=== PATIENT | female | born 1985 | race African-American/Black ===

== ENCOUNTER 2021-05-23 16:16 | Emergency (ER) | payer OTHER ==
[~2021-05-23] VITALS: Ht 172.7 cm; Wt 76.0 kg
[2021-05-23 16:30] VITALS: BP 120/72
== END 2021-05-23 18:00 | disposition home or self-care (01) ==
LOC: ER 16:16
DX: J02.8 Acute pharyngitis due to other specified organisms (principal)
CPT/HCPCS: 87070; 87880; 99283-25

== ENCOUNTER 2021-05-30 17:03 | Emergency (ER) | payer OTHER ==
[~2021-05-30] VITALS: Ht 172.7 cm; Wt 77.2 kg
[2021-05-30 17:18] VITALS: BP 135/88
--- NOTE | 2021-05-30 18:03 | PHYS DOC ---
Past History Past Surgical History: No Surgical History Alcohol Use: Rarely General Adult EDM: Chief Complaint: SORE THROAT HPI: HPI: ".. I ve had a fever the last couple days.. sore throat... 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 Patient is up-to-date with vaccinations including Covid with pending booster.. Did get flu vaccination. Normally healthy. Up-to-date with other vaccines. Normally follows at [facility]. No recent travel. No history immunosuppression. Review of Systems: Review of Systems: Constitutional: Subjective complaints of fever or chills Eyes: Denies change in visual acuity HENT: Complains of sore throat Respiratory: Denies cough or shortness of breath Cardiovascular: Denies chest pain or edema GI: Denies abdominal pain, nausea, vomiting, bloody stools or diarrhea : Denies dysuria Musculoskeletal: Denies back pain or joint pain Integument: Denies rash Neurologic: Denies headache, focal weakness or sensory changes Endocrine: Denies polyuria or polydipsia Lymphatic: Denies swollen glands Psychiatric: Denies depression or anxiety Family History: Family History: Noncontributory to presentation. Current Medications: Current Meds: See nursing for home meds Allergies: Allergies: Allergies Coded Allergies Type Severity Reaction Last Updated Verified No Known Drug Allergies 05/23/21 No Physical Exam: PE: Constitutional: Well developed, well nourished, moderate acute distress, non- toxic appearance. [] HENT: Normocephalic, atraumatic, bilateral external ears normal, oropharynx moist, no oral exudates, nose swollen turbinates. Injected pharynx. Eyes: PERRLA, EOMI, conjunctiva normal, no discharge. [] Neck: Normal range of motion, no tenderness, supple, no stridor. [] Minimal adenopathy Cardiovascular:Heart rate regular rhythm, no murmur [] Lungs & Thorax: Bilateral breath sounds equal at apex on auscultation [] Abdomen: Bowel sounds normal, soft, no tenderness, no masses, no pulsatile masses. [] Skin: Warm, dry, no erythema, no rash. [] Back: No tenderness, no CVA tenderness. [] Extremities: No tenderness, no cyanosis, no clubbing, ROM intact, no edema. [] Neurologic: Alert and oriented X 3, normal motor function, normal sensory function, no focal deficits noted. [] Psychologic: Affect normal, judgement normal, mood normal. [] Current Patient Data: Vital Signs: Vital Signs Date Time Temp Pulse Resp B/P (MAP) Pulse Ox O2 Delivery O2 Flow Rate FiO2 05/30/21 17:18 98.0 64 20 135/88 (104) 100 Room Air EKG: EKG: [] Radiology/Procedures: Radiology/Procedures: [] Heart Score: C/O Chest Pain: N/A Risk Factors: Risk Factors: DM, Current or recent (<one month) smoker, HTN, HLP, family history of CAD, obesity. Risk Scores: Score 0 - 3: 2.5% MACE over next 6 weeks - Discharge Home Score 4 - 6: 20.3% MACE over next 6 weeks - Admit for Clinical Observation Score 7 - 10: 72.7% MACE over next 6 weeks - Early Invasive Strategies Course & Med Decision Making: Course & Med Decision Making Pertinent Labs and Imaging studies reviewed. (See chart for details) Patient gargle Listerine 4 times a day. Take Tylenol and ibuprofen for discomfort. Push fluids. Follow-up primary care. Return if any concerns. Impression: 1. Pharyngitis- Viral Syndrome [] Dragon Disclaimer: Jesica Disclaimer: This electronic medical record was generated, in whole or in part, using a voice recognition dictation system. Departure Departure: Referrals: PCP,UNKNOWN (PCP) SHAY BELLE MD May 30, 2021 18:03
[2021-05-30] MEDS ORDERED: predniSONE 10 MG TABLET. PO ONE (18:30)
[2021-05-30] MEDS ORDERED: IBUPROFEN 600 MG TABLET. PO ONE (18:30)
[2021-05-30] MEDS ORDERED: ACETAMINOPHEN 500 MG TABLET PO ONE (18:30)
[2021-05-30 19:34] LABS: INFLUENZA A PATIENT NEGATIVE (NEGATIVE); INFLUENZA B PATIENT NEGATIVE (NEGATIVE)
== END 2021-05-30 19:54 | disposition home or self-care (01) ==
LOC: ER 17:03
DX: B34.9 Viral infection, unspecified (principal); Z20.822 Contact with and (suspected) exposure to COVID-19
CPT/HCPCS: 87070; 87426; 87804; 87880; 99284; C9803; J7512; U0003